=== PATIENT | female | born 1975 | race Caucasian/White ===

== ENCOUNTER 2016-05-13 15:40 | Emergency (ER) | payer OTHER ==
[2016-05-13 15:57] VITALS: RESP 18; O2SAT 94
[2016-05-13 16:14] LABS: COLOR YELLOW; LEUKOCYTE ESTERASE,URINE NEGATIVE (NEGATIVE); NITRITE,URINE NEGATIVE (NEGATIVE); PH,URINE 5.5 (5.0-7.5)
--- NOTE | 2016-05-13 16:18 | UCPHY ---
H & P Time Seen by Provider: 05/13/16 16:02 Patient Type: New HPI/ROS: CHIEF COMPLAINT: Frequent urination HISTORY OF PRESENT ILLNESS: 40-year-old female reports that for the last 4 days she has had frequent urination. Some dysuria, urgency, and frequency. She has been taking azo [id number]. Some improvement but symptoms are not totally resolved. No fever. No abdominal pain, no back pain, no vomiting. No vaginal discharge. No new sexual partners. Patient reports that she uses condoms regularly. No fever, chills, chest pain, shortness of breath, palpitations, vomiting, diarrhea, headache, lightheadedness. REVIEW OF SYSTEMS: Aside from elements discussed in the HPI, a comprehensive 10-point review of systems was reviewed and is negative. PAST MEDICAL HISTORY: Denies. SOCIAL HISTORY: Nonsmoker. VITAL SIGNS: see nurse's notes. GENERAL: Well-developed, well-nourished, in no acute distress. HEENT: Normal, no discharge or icterus, moist mucous membranes. Neck: supple, FROM. LUNGS: Clear to auscultation bilaterally, no wheezes, rhonchi or rales. CARDIAC: Regular rate and rhythm, no rubs, murmurs or gallops. ABDOMEN: Soft, nontender, nondistended, bowel sounds normal. No suprapubic tenderness. BACK: No CVA tenderness. No vertebral tenderness. EXTREMITIES: No edema, FROM. NEURO: Alert and oriented, grossly nonfocal. SKIN: Warm and dry, no rash. Smoking Status: Light smoker Constitutional: Initial Vital Signs Temperature (C) 37.6 C 05/13/16 15:50 Heart Rate 72 05/13/16 15:50 Respiratory Rate 18 05/13/16 15:50 Blood Pressure 162/96 H 05/13/16 15:50 O2 Sat (%) 94 05/13/16 15:50 O2 Delivery Mode Room Air Allergies/Adverse Reactions: ibuprofen Allergy (Intermediate, Verified 05/13/16 15:57) Hives Penicillins Allergy (Intermediate, Verified 05/13/16 15:57) Hives Home Medications: Medication Instructions Recorded Gentamicin 0.3% [Gentak 0.3% Opht 1 drop OP Q2 #1 bottle 10/18/11 Drops (RX)] Gentamicin 0.3% [Gentak 0.3% Opht 1 applic EACHEYE HS #1 ointtube 10/18/11 Oint] Miscellaneous Medical Supply [NO 1 ea MISC AD 10/18/11 HOME MEDS] Fluconazole [Diflucan (*)] 150 mg PO ONCE #1 tab 05/13/16 Nitrofurantoin Monohyd/M-Cryst 100 mg PO BID #14 capsule 05/13/16 [Macrobid 100 mg Capsule] MDM/Departure - [facility] ED Course/Re-evaluation: 40year-old female presenting with dysuria. Symptoms have improved somewhat with azo but are not totally cleared. Urinalysis has no red cells, no white cells, some bacteria but 3+ epithelial cells. Patient was advised that the urine today has no clear evidence for urinary tract infection. She was encouraged to continue to push fluids and drink cranberry juice. Her symptoms are not improving refer urine culture becomes positive, she was given a prescription for Macrobid to use as needed. Patient also requests a prescription for Diflucan as she frequently develops urinary tract infections after taking antibiotics. - Depart Disposition: Home, Routine, Self-Care Clinical Impression: Dysuria Condition: Good Instructions: Dysuria (ED) Additional Instructions: Your urine today is very dilute. There is no evidence of ongoing infection. Please drink plenty of fluids, continue to use azo, and cranberry juice. If her symptoms are still persistent, if the urine culture becomes positive, you may begin taking the Macrobid. Prescriptions: Fluconazole [Diflucan (*)] 150 mg PO ONCE #1 tab Nitrofurantoin Monohyd/M-Cryst [Macrobid 100 mg Capsule] 100 mg PO BID #14 capsule - PQRS PQRS Measurement: Not applicable
[2016-05-13 16:22] LABS: BACTERIA 1+ /hpf (NONE SEEN); MUCUS TRACE /lpf (NONE-1+); RBC,URINE NONE SEEN /hpf (0-3); WBC,URINE NONE SEEN /hpf (0-3)
[2016-05-13 16:45] VITALS: BP 155/78; PULSE 75; TEMP 98.2
== END 2016-05-13 16:47 | disposition home or self-care (01) ==
LOC: CED 15:40
DX: R30.0 Dysuria (principal); R35.0 Frequency of micturition; R39.15 Urgency of urination
CPT/HCPCS: 81003-PO; 81015-PO; 99203-PO; G0463-PO

== ENCOUNTER 2017-03-28 14:08 | Emergency (ER) | payer OTHER ==
[2017-03-28 14:20] VITALS: BP 119/98; PULSE 95; RESP 18; TEMP 97.4; O2SAT 92
--- NOTE | 2017-03-28 15:12 | EDPHY ---
H & P Time Seen by Provider: 03/28/17 14:55 HPI/ROS: Patient complains of sinus pain left more than right frontal and maxillary after 3 week history of nasal congestion. Over the past few days she has developed yellow and green nasal discharge. She describes the intensity of the pressure in ache as 7/10. She notes no clear exacerbating factors but notes some relief from Aleve. While she reports an allergy to ibuprofen-hives she can tolerate Aleve without difficulty. She also has occasional cough associated with this illness but she attributes this to postnasal drip when she lies down flat. No other pulmonary symptoms. She arrived by private vehicle for evaluation of the symptoms. ROS: Constitutional: No fevers or chills. Neuro: No generalized headache. No contusion, neck stiffness, numbness or tingling. No focal weakness. HEENT: Mild ear pressure bilaterally. No sore throat. Pulmonary: No pleuritic pain. No dyspnea. No hemoptysis. Cardiovascular: No chest pain or palpitations. GI: No nausea vomiting Integumentary: No skin rash 7 point ROS is otherwise negative Past Medical/Surgical History: Otherwise healthy Social History: Occasional alcohol. No drug use. Smoking Status: Light smoker Physical Exam: Physical Exam Vital signs are normal. General: No acute distress HEENT: Nose: There is green nasal discharge left narrowing more than right with swollen nasal mucosa. She has sinus tenderness to percussion left maxillary and frontal more than right. ysphonia. No drooling or stridor. Eyes: Pupils equal and react to light. Extraocular motions are intact. Neck: Supple with no meningismus. No lymphadenopathy Lungs: Clear to auscultation bilaterally with no rales, rhonchi or wheeze. No respiratory distress. Cardiac: Regular rate and rhythm with no murmur gallop or rub Skin: No rash or pallor. Neuro: Alert with no focal deficits noted. Initial differential diagnosis: Bacterial sinusitis, viral rhinosinusitis, URI with cough Constitutional: Initial Vital Signs Temperature (C) 36.3 C 03/28/17 14:17 Heart Rate 95 03/28/17 14:17 Respiratory Rate 18 03/28/17 14:17 Blood Pressure 119/98 H 03/28/17 14:17 O2 Sat (%) 92 03/28/17 14:17 O2 Delivery Mode Room Air Allergies/Adverse Reactions: ibuprofen Allergy (Intermediate, Verified 03/28/17 14:14) Hives Penicillins Allergy (Intermediate, Verified 03/28/17 14:14) Hives Home Medications: Medication Instructions Recorded CeleXA 20 MG 03/28/17 Doxycycline Hyclate [Vibramycin 100 mg PO BID #20 cap 03/28/17 100 MG (*)] Fluconazole [Diflucan] 200 mg PO ONCE PRN #2 tablet 03/28/17 Fluticasone Nasal [Flonase Nasal 2 sprays NASAL DAILY #1 mdi 03/28/17 [place] (RX)] MDM/Departure - [facility] ED Course/Re-evaluation: Discussion: Patient's lungs are clear with no clinical evidence of bronchitis or pneumonia. Her combination of 3 weeks of symptoms, green discharge, swollen nasal mucosa sinus tenderness to percussion is consistent with bacterial sinusitis. Will treat her with doxycycline, Flonase and Aleve. No clinical evidence of [employer] infection or other complicating factors. However the patient understands the need to return to the emergency department should she develop any significant worsening despite the treatment plan. She will follow up with primary care physician for any ongoing symptoms despite the treatment plan. - Depart Disposition: Home, Routine, Self-Care Clinical Impression: Acute sinusitis Qualifiers: Sinusitis location: pansinusitis Recurrence: non-recurrent Qualified Code(s): J01.40 - Acute pansinusitis, unspecified Condition: Good Instructions: Sinusitis (ED) Additional Instructions: Diagnosis: Acute sinusitis Plan: Humidifier Guaifenesin mucolytic [id number] Continue with Aleve for discomfort and swelling as needed Start Flonase steroid nasal spray in addition and doxycycline antibiotic. Wear sunscreen if her outside while in the doxycycline as this antibiotic will make your skin more sensitive to sunburn. Diflucan if needed if he developed vaginal yeast infection is a complication of the antibiotic. Follow up with your primary care physician if you still are not improving over the next week with treatment plan. Return for any significant worsening despite the treatment plan Prescriptions: Doxycycline Hyclate [Vibramycin 100 MG (*)] 100 mg PO BID #20 cap Fluticasone Nasal [Flonase Nasal [place] (RX)] 2 sprays NASAL DAILY #1 mdi Referrals: Laureen Varela MD [Primary Care Provider] - As per Instructions
== END 2017-03-28 15:15 | disposition home or self-care (01) ==
LOC: CED 14:08
DX: J01.40 Acute pansinusitis, unspecified (principal); F17.200 Nicotine dependence, unspecified, uncomplicated